=== PATIENT | male | born 1990 | race African-American/Black ===

== ENCOUNTER 2019-12-10 10:29 | Emergency (ER) | payer MEDICAID, SELFPAY ==
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
[2019-12-10 10:30] VITALS: BP 124/88; PULSE 60; RESP 18; TEMP 36.8; O2SAT 99
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
[2019-12-10] MEDS: HYDROcodone/acetaminophen (*CRX) 5-325 MG TABLET 2 TAB PO (10:55)
[2019-12-10] MEDS: TETANUS,DIPHTHERIA,AC PERTUSSIS ADULT (0.5 ML) BOOSTRIX IM (10:56)
[2019-12-10 11:44] VITALS: BP 135/78; PULSE 68; RESP 12; O2SAT 100
[2019-12-10] MEDS: CEPHALEXIN 500 MG CAPSULE PO (11:50)
--- NOTE | 2019-12-10 12:30 | PC.NURSE ---
ERP at bedside repairing laceration.
[2019-12-10 16:08] VITALS: BP 155/97; PULSE 116; RESP 12; O2SAT 97
[2019-12-10 16:56] VITALS: BP 132/68; PULSE 68; RESP 14; O2SAT 98
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
== END 2019-12-10 16:58 | disposition home or self-care (01) ==
PROVIDERS: Emergency Provider Emergency Medicine
DX: S62.635B Displaced fracture of distal phalanx of left ring finger, initial encounter for open fracture (principal); S52.515A Nondisplaced fracture of left radial styloid process, initial encounter for closed fracture; V43.52XA Car driver injured in collision with other type car in traffic accident, initial encounter; S80.812A Abrasion, left lower leg, initial encounter; S80.212A Abrasion, left knee, initial encounter; Z23 Encounter for immunization
CPT/HCPCS: 12032; 29125; 73100; 73140; 73562; 73590; 90471; 90715; 99284; A9270

== ENCOUNTER 2019-12-30 11:35 | Outpatient (CLI) | payer MEDICAID, SELFPAY ==
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
== END 2019-12-30 11:36 | disposition home or self-care (01) ==
PROVIDERS: Visit Provider Plastic Surgery
DX: S62.635D Displaced fracture of distal phalanx of left ring finger, subsequent encounter for fracture with routine healing (principal); X58.XXXD Exposure to other specified factors, subsequent encounter
CPT/HCPCS: 73140

== ENCOUNTER 2020-02-05 16:49 | Outpatient (CLI) | payer OTHER, SELFPAY ==
--- NOTE | ~2020-02-05 | XR_ITS ---
XR finger 4th LT min 2V DATE: 02/05/2020 17:13 INDICATION: Fourth digit distal phalangeal fracture TECHNIQUE: 3 views COMPARISON: 12/10/2019 and 12/30/2019 left fourth digit radiographs FINDINGS: Again noted is a comminuted fracture of the metaphysis and shaft of the distal phalanx of t he fourth digit with little interval change in position or alignment since 12/10/2019. IMPRESSION: No significant change since 12/10/2019 Reviewed, dictated and finalized at location A. RINARY BACTERIOLOGIST
--- NOTE | ~2020-02-05 | XR_ITS ---
XR wrist LT min 3V DATE: 02/05/2020 17:13 INDICATION: Radial styloid fracture TECHNIQUE: 4 views COMPARISON: 12/10/2019 left wrist FINDINGS: There is interval virtually complete resolution of the linear nondisplaced fracture line of the radial styloid process since 12/10/2019. No other fracture or dislocation. IMPRESSION: Healed nondisplaced intra-articular radial styloid process fracture Reviewed, dictated and finalized at location A. LE ROLLER
== END 2020-02-05 16:50 | disposition home or self-care (01) ==
LOC: ANHIMG 16:55
PROVIDERS: Visit Provider Plastic Surgery
DX: S52.512D Displaced fracture of left radial styloid process, subsequent encounter for closed fracture with routine healing (principal); X58.XXXD Exposure to other specified factors, subsequent encounter
CPT/HCPCS: 73110; 73140

== ENCOUNTER 2020-02-27 00:34 | Outpatient (CLI) | payer OTHER, SELFPAY ==
[2020-02-27 19:13] LABS: SARS-CoV-2 RNA PCR Negative
== END 2020-02-27 00:35 | disposition home or self-care (01) ==
LOC: ANHCOVIDDT 00:34
PROVIDERS: Visit Provider Plastic Surgery
DX: Z01.818 Encounter for other preprocedural examination (principal); Z20.828 Contact with and (suspected) exposure to other viral communicable diseases
CPT/HCPCS: 87635; C9803; U0003

== ENCOUNTER 2020-03-02 00:22 | Day surgery (SDC) | payer OTHER, SELFPAY ==
[2020-02-25 12:32] VITALS: BMI 23.6
--- NOTE | 2020-03-01 12:40 | P.PNAN_ITS ---
Anes - Initial Pre Proc Eval Procedure: Operation Date: 03/02/20 10:15 Proposed Procedures p Open Reduction Internal Fixation Ununited Displaced Fracture Distal Phalanx Left Ring Finger With C-Wires, Possible Freeze Dried Bone Graft - Toñito Pryor MD Date/Time: 03/01/20 12:40 Surgeon: Toñito Pryor MD Pre Op Diagnosis: Unstable Displaced Fx Distal Phalanx Lt Ring Finge Patient Data Age: 29 Gender: M Height: 1.8 m Weight: 77 kg Allergies Allergy/AdvReac Type Severity Reaction Status Date / Time No Known Allergies Allergy Verified 03/02/20 08:56 Home Medications Medication Instructions Recorded Confirmed Type No Home Medications 02/25/20 03/02/20 History Patient hx anesthesia problems: none Family hx anesthesia problems: none [facility] Social History Social History Smoking status: Current every day smoker Tobacco type: cigars Additional smoking assessment comments: 2 CIGARS/DAY X 11 YEARS Alcohol intake: current Drinks per week: 18 Substance use: never Living arrangements: with family Additional living arrangements comments: [facility] Gender identity (if verbalized by the patient): Male Spiritual care concerns: No Anes - Eval Final PreProcedure Day of Procedure 03/01/20 12:40 Patient weight: normal Heart: regular rate and rhythm Lungs: clear to auscultation and normal air movement Airway: Mallampati scale class II Neurological: alert and oriented Last oral intake: >/= 8 hours ASA classification: II Emergent: no Anesthetic plan: proceed Anesthesia type and monitoring: general LMA Informed Consent: The patient's anesthetic plan and its attendant risks and benefits were discussed with the patient/family/POA. Questions were solicited and answers provided to the satisfaction of the patient/family/POA.
--- NOTE | ~2020-03-02 | XR_ITS ---
EXAMINATION: XR surgery orthopedic DATE: 03/02/2020 15:01 INDICATION: ORIF left ring finger TECHNIQUE: 2 fluoroscopic spot images of the left fourth digit were obtained during procedure perform ed by Dr. Pryor. Radiologist was not present for the imaging or procedure. The amount of fluoroscopy time used during this procedure was 1.2 minutes. COMPARISON: 02/05/2020 FINDINGS: Again seen is a comminuted fracture of the left fourth distal phalanx. The fracture now appears in ne ar-anatomic alignment with reduction of the previously palmar displaced fragment at the palmar aspect of the proximal metaphyseal region. The fracture is fixed with 2 percutaneous pins which extend into the middle phalanx. No other fractures identified. The proximal and distal interphalangeal joint spa ce appear normal on the lateral projection. Assessment on the frontal projection is significantly nichols ited by lars frederick. IMPRESSION: 1. Near-anatomic alignment post reduction and percutaneous pin fixation of a comminuted fracture of t he left fourth distal phalanx. See procedure note for further detail. Reviewed, dictated and finalized at location A. L[facility] P[employer]IEF IMPRESSION: 1. Near-anatomic alignment post reduction and percutaneous pin fixation of a co mminuted fracture of the left fourth distal phalanx. See procedure note for fur ther detail.
--- NOTE | 2020-03-02 07:15 | WPDHPUPDATE1 ---
History and Physical Update Update Date/Time: 03/02/20 07:15 History and Physical has been reviewed, including an updated exam of the patient. There are NO changes in the patient's condition. Risks, benefits, and alternatives have been discussed and questions answered. Patient agrees to proceed with procedure.
[2020-03-02] MEDS: LACTATED RINGERS 1,000 ML 30 ML IV CONT (08:45)
[2020-03-02 08:57] VITALS: BP 119/73; PULSE 72; RESP 20; TEMP 36.8; O2SAT 100
--- NOTE | 2020-03-02 10:27 | SUR.PREOP ---
PT INFORMED OF DELAY W/SURGEON/ACKNOWLEDGES UNDERSTANDING. PT WILL PROVIDE S/O W/UPDATE AT THIS TIME
[2020-03-02] MEDS: BACITRACIN OINTMENT 15 GM TUBE 1 APPLIC TOPICAL (13:00)
[2020-03-02] MEDS: LIDO 1%/EPINEPHRINE 1:100,000 20 ML VIAL 10 ML INFILTRATE (13:00)
[2020-03-02 14:41] VITALS: BP 116/64; PULSE 69; RESP 18; O2SAT 99
[2020-03-02 14:50] VITALS: BP 116/72; PULSE 63; RESP 20; O2SAT 100
--- NOTE | 2020-03-02 14:57 | PM.OP ---
Procedure Note - Brief Procedure Note - Brief Date of procedure: 03/02/20 Pre-op diagnosis: Unstable Displaced Fx Distal Phalanx Lt Ring Finge Post-op diagnosis: same Procedure performed: ORIF left ring finger distal phalanx. Anesthesia: MAC Surgeon: Toñito Pryor MD Estimated blood loss (mL): 0 Tourniquet time (min): 60 Drains: No Pathology: none sent Complications: No immediate complications Condition: stable Disposition: PACU
[2020-03-02 15:00] VITALS: BP 123/78; PULSE 62; RESP 20; O2SAT 98
[2020-03-02 15:15] VITALS: BP 123/78; PULSE 62; RESP 18; O2SAT 97
--- NOTE | 2020-03-02 15:17 | SUR.PHASEI ---
0053 - dr flores at bedside
[2020-03-02 15:25] VITALS: BP 133/78; PULSE 54; RESP 14
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
== END 2020-03-02 16:10 | disposition home or self-care (01) ==
PROVIDERS: Visit Provider Plastic Surgery
PROC: (CPT 26765; principal; 2020-03-02 11:15)
DX: S62.635A Displaced fracture of distal phalanx of left ring finger, initial encounter for closed fracture (principal); V29.9XXA Motorcycle rider (driver) (passenger) injured in unspecified traffic accident, initial encounter; F17.290 Nicotine dependence, other tobacco product, uncomplicated
CPT/HCPCS: 26765; A9270; C1713; J1100; J2250; J2405; J2704; J3010; J7120